=== PATIENT | female | born 1955 | race Caucasian/White ===

== ENCOUNTER 2017-07-07 14:59 | Outpatient (CLI) | payer OTHER ==
[2017-07-07] MEDS ORDERED: Gadobenate Dimeglumine 529 MG/1 ML (20ML VIAL) ONE (17:34)
--- NOTE | 2017-07-07 17:47 | MRI ---
MRI OF BRAIN WITH AND WITHOUT CONTRAST 07/07/17 Multiplanar and multisequential imaging of brain obtained. Postcontrast images are obtained with admi nistration of 12 mL Multihance. HISTORY: Multiple sclerosis. Fell this morning with injury to back of head. There are no comparison studies available. Ventricles are of normal size and position. No evidence of restricted diffusion. No evidence of mass or edema. There is minimal white matter hyperintensity seen along the posterior horn of the right lateral ventr icle. There is question of a hyperintensity seen in the corpus callosum of the midline, best seen on sagittal imaging. No other white matter lesions seen that would indicate multiple sclerosis. No abnormal enhancement. The skull base arteries show normal flow voids. There is no evidence of hemo rrhage. IMPRESSION: 1. Nonspecific white matter hyperintensity adjacent to the posterior horn of the right lateral v entricle which could represent chronic ischemic change in a patient of this age. No significant evide nce of multiple sclerosis seen in the white matter. There is a questionable hyperintensity seen in th e corpus callosum on sagittal imaging. 2. MRI of brain otherwise unremarkable. POS: [facility]
== END 2017-07-07 15:00 | disposition home or self-care (01) ==
LOC: MRI 14:59
PROVIDERS: ATTEND Psychiatry & Neurology Neurology
DX: G35 Multiple sclerosis (principal)
CPT/HCPCS: 70553; A9579

== ENCOUNTER 2018-04-26 10:51 | Outpatient (CLI) | payer BC | END 2018-04-26 10:52 | disposition home or self-care (01) | LOC: BICMAMMO 10:51 | PROVIDERS: ATTEND Internal Medicine | DX: Z12.31 Encounter for screening mammogram for malignant neoplasm of breast (principal) | CPT/HCPCS: 77063; 77067 ==